=== PATIENT | female | born 1970 | race Caucasian/White ===

== ENCOUNTER 2021-11-08 07:14 | Day surgery (SDC) | payer OTHER ==
[~2021-11-08] VITALS: Ht 170.2 cm; Wt 77.1 kg
[~2021-11-08 07:14] MED LIST: ATOR10 PO; AZIT500 PO; Amoxicillin500 MG PO; CALCAVITDA; CALGLU500; CARB50; FISH OIL 1,2001 EAC7 PO; FISH1000 PO; IBUP600 PO; MULVITA PO; MULVITMIND; MULVITMINF PO; OXYACE5T PO; [UNRECOGNIZED DRUG - OTHER]
--- NOTE | 2021-11-08 08:00 | NUR ---
History, Chart, Medications and Allergies reviewed before start of procedure. Lungs clear T/O to Auscultation. Patient confirms NPO status and agrees with scheduled surgery. Pre-Op teaching done. Pt verbalizes understanding. Patient States Post-Procedure ride home has been arranged. Patient reports completing Chlorhexadine shower X2 prior to admission to hospital.
--- NOTE | 2021-11-08 08:11 | NUR ---
REPORT TO DI Valle RN TO ASSUME CARE OF PATIENT
--- NOTE | 2021-11-08 09:19 | NUR ---
11/08/21 0919 Melba Juárez PER SURGEON, NO INTRAOPERATIVE ANTIBIOTICS WERE ORDERED.
--- NOTE | 2021-11-08 10:30 | NUR ---
Discharge instructions reviewed with patient. Patient verbalizes understanding. Copy given to patient to take home.
--- NOTE | 2021-11-08 10:40 | NUR ---
Discharged via wheelchair to private car for ride home.
== END 2021-11-08 10:41 | disposition home or self-care (01) ==
LOC: ORSCMMR 07:14 → ORD 08:45 → ORSCMMR 08:45
PROVIDERS: Surgery
PROC: 0JBF0ZZ Excision of Left Upper Arm Subcutaneous Tissue and Fascia, Open Approach (ICD-10-PCS; principal; 2021-11-08 08:45)
DX: R22.2 Localized swelling, mass and lump, trunk (principal); E78.5 Hyperlipidemia, unspecified; K21.9 Gastro-esophageal reflux disease without esophagitis; F17.210 Nicotine dependence, cigarettes, uncomplicated; Z79.899 Other long term (current) drug therapy
CPT/HCPCS: 88304; J1100; J1885; J2250; J2370; J2405; J2704; J3010; J7120

== ENCOUNTER 2024-12-15 07:29 | Day surgery (SDC) | payer OTHER ==
[~2024-12-15] VITALS: Ht 167.6 cm; Wt 86.7 kg
[2024-12-15] VITALS (13 sets, daily range): BP systolic 89–121; BP diastolic 55–107
[~2024-12-15 07:29] MED LIST changes: +COQ-10100 MG PO; +Lactated Ringer's 1,000 ML IV SCH
--- NOTE | 2024-12-15 07:49 | NUR ---
History, Chart, Medications and Allergies reviewed before start of procedure. Patient confirms NPO status and agrees with scheduled surgery. Reports taking all colon prep with clear results. "" at bedside and agrees to drive patient home.
[2024-12-15] MEDS ORDERED: Midazolam HCl 1MG / ML 2ML Vial ONE (08:01)
[2024-12-15] MEDS ORDERED: propofoL 40 ML IV ONE (08:02)
--- NOTE | 2024-12-15 08:04 | NUR ---
12/15/24 0804 Sheree Longo CONFIRMED AND REVIEWED H&P, MEDCICATIONS, ALLERGIES, MEDICAL HISTORY, RESPIRATORY HISTORY, VITAL SIGNS, 3-LEAD EKG, CONSENTS, AND PHYSICIAN ORDERS. PATIENT CONFIRMS NPO STATUS AND AGREES WITH SCHEDULED PROCEDURE. MONITOR INTACT WITH CONTINUOUS PULSE OXIMETRY, CAPNOGRAPHY, 3-LEAD EKG, INTERMITTENT BP. SUPPLEMENTAL O2 TO BE TITRATED THROUGHOUT PROCEDURE TO MAINTAIN O2 SATURATION ABOVE 90%. PATIENT DETERMINED TO BE ASA APPROPRIATE FOR PROPOFOL SEDATION PRIOR TO START OF PROCEDURE BY DR. STILES
--- NOTE | 2024-12-15 09:00 | NUR ---
Discharge instructions reviewed with patient. Patient verbalizes understanding. Copy given to patient to take home. Patient States Post-Procedure ride home has been arranged. Discharged via wheelchair to private car for ride home.
== END 2024-12-15 09:00 | disposition home or self-care (01) ==
LOC: ORSCMMR 07:29 → ORD 08:30 → ORSCMMR 09:00
PROVIDERS: Internal Medicine Gastroenterology
PROC: 0DBN8ZX Excision of Sigmoid Colon, Via Natural or Artificial Opening Endoscopic, Diagnostic (ICD-10-PCS; principal; 2024-12-15 08:30)
PROC: 0DBM8ZX Excision of Descending Colon, Via Natural or Artificial Opening Endoscopic, Diagnostic (ICD-10-PCS; principal; 2024-12-15 08:30)
DX: Z12.11 Encounter for screening for malignant neoplasm of colon (principal); K63.5 Polyp of colon; E78.00 Pure hypercholesterolemia, unspecified; F17.210 Nicotine dependence, cigarettes, uncomplicated; Z79.899 Other long term (current) drug therapy
CPT/HCPCS: 88305; J2250; J2704; J7120